=== PATIENT | female | born 1985 | race Asian ===

== ENCOUNTER 2019-04-08 17:20 | Outpatient (CLI) | payer OTHER, SELFPAY ==
[2019-04-12 05:10] LABS: Progesterone 11.5 ng/mL (***); Prolactin 17.5 ng/mL (***)
== END 2019-04-08 17:21 | disposition home or self-care (01) ==
LOC: ANHLAB 17:22
PROVIDERS: Visit Provider Obstetrics & Gynecology
DX: N97.0 Female infertility associated with anovulation (principal)
CPT/HCPCS: 36415; 84144; 84146; 84443

== ENCOUNTER 2020-04-30 16:13 | Inpatient (IN) | payer OTHER, SELFPAY ==
[2020-04-30] VITALS (13 sets, daily range): BP systolic 108–140; BP diastolic 64–99; PULSE 88–110; TEMP 36.4–37.3; BMI 29.7
--- NOTE | 2020-04-30 16:50 | LDADM ---
This patient, Gloria Garcia, was admitted to Labor/Delivery/Recovery 108 on 04/30/20 at 16:13. Plans for labor, pain management and were discussed with patient. Patient/family oriented to hospital policies and general routines including ID bracelet, bed and alarms, visiting hours, pain management, procedures, bathroom and other care routines, personal items, smoking policy, room service/diet and guest tray routines, security routines, and visiting hours. Patient/Family are encouraged to report perceived risks to care and to ask questions if they do not understand what they are told or what they should do. See OBIX for further documentation.
[2020-04-30 17:00] LABS: Basophils Absolute Auto 0.1 K/mm3 (0.0-0.1); Basophils Percent Auto 0.8 % (0.2-1.2); Eosinophils Absolute Auto 0.1 K/mm3 (0-0.3); Hematocrit 44.7 % (37.0-47.0); Hemoglobin 15.5 g/dL (12.0-15.0); Immature Granulocyte Absolute 0.09 K/mm3 (0.00-0.031); Lymphocytes Absolute Auto 1.33 K/mm3 (0.9-3.2); Lymphocytes Percent Auto 14.5 % (18.3-44.2); Mean Corpuscular HGB Conc 34.7 g/dl (32-36); Mean Corpuscular Hemoglobin 31.3 pg (26-34); Mean Corpuscular Volume 90.3 fl (80-100); Mean Platelet Volume 10.6 fl (7.4-10.4); Monocytes Absolute Auto 0.8 K/mm3 (0.1-0.6); Monocytes Percent Auto 9.2 % (2.6-8.5); Neutrophils Absolute Auto 6.7 K/mm3 (1.3-6.7); Neutrophils Percent Auto 73.5 % (45.5-73.1); Platelet Count Result 168 k/mm3 (150-375); Red Blood Count 4.95 M/mm3 (4.2-5.4); Red Cell Distribution Width 12.8 % (11.5-14.5); White Blood Count 9.2 K/mm3 (4.5-10.0)
[2020-04-30] MEDS: DINOPROSTONE 10 MG VAG INSERT VAGINAL (17:24)
[2020-05-01] VITALS (181 sets, daily range): BP systolic 66–165; BP diastolic 39–109; PULSE 31–281; RESP 16; TEMP 36.2–38.1; O2SAT 70–100
[2020-05-01] MEDS: LACTATED RINGERS 1,000 ML 125 ML IV CONT ×5 (05:21→21:06)
[2020-05-01] MEDS: OXYTOCIN 30 UNITS/NS 500 ML 30 UNITS/500 ML BAG 6 UNITS IV CONT (05:25)
--- NOTE | 2020-05-01 08:42 | WPDOBADMIT ---
Obstetrics - Admit Note Admission Note: record reviewed. Additions to the history and/or subsequent changes in the physical findings follow. 34 y/o G1 at 39 6/7 weeks here for induction of labor. Cervidil overnight. GBS neg. AVSS NST reactive TOCO: contractions every 2-3 min ABD soft, nontender, gravid, vertex EXT nontender Cervix 3/50/-2. AROM with clear fluid. A: IUP at term, desiring induction of labor. P: Oxytocin. Anticipate .
--- NOTE | 2020-05-01 09:47 | P.PNAN_ITS ---
Anes - Eval Pre Procedure Procedure: labor epidural Date/Time: 05/01/20 09:47 Surgeon: rut Preop Diagnosis: labor pain Pre Op Diagnosis: Induction of Labor Patient Data Age: 34 Gender: F Height: 5 ft 3 in Weight: 76 kg Last Vital Signs Temp 37.0 C 05/01/20 07:00 Pulse 92 05/01/20 09:30 BP 130/77 05/01/20 09:30 Allergies Allergy/AdvReac Type Severity Reaction Status Date / Time No Known Allergies Allergy Verified 02/27/20 11:41 Home Medications Medication Instructions Recorded Confirmed Type prenat.vits,jolly,[id number] 1 tablet PO DAILY 02/27/20 04/14/20 History Laboratory Tests 04/30/20 04/30/20 04/30/20 16:39 16:39 16:39 WBC 9.2 K/mm3 K/mm3 (4.5-10.0) RBC 4.95 M/mm3 M/mm3 (4.2-5.4) Hgb 15.5 g/dL H g/dL (12.0-15.0) Hct 44.7 % % (37.0-47.0) MCV 90.3 fl fl (80-100) MCH 31.3 pg pg (26-34) MCHC 34.7 g/dl g/dl (32-36) RDW 12.8 % % (11.5-14.5) Plt Count 168 k/mm3 k/mm3 (150-375) MPV 10.6 fl H fl (7.4-10.4) Immature Gran % (Auto) 1.0 % H % (0-0.5) Neut % (Auto) 73.5 % H % (45.5-73.1) Lymph % (Auto) 14.5 % L % (18.3-44.2) [place] % (Auto) 9.2 % H % (2.6-8.5) Eos % (Auto) 1.0 % % (0-4.4) Baso % (Auto) 0.8 % % (0.2-1.2) Lymph # (Auto) 1.33 K/mm3 K/mm3 (0.9-3.2) [place] # (Auto) 0.8 K/mm3 H K/mm3 (0.1-0.6) Eos # (Auto) 0.1 K/mm3 K/mm3 (0-0.3) Baso # (Auto) 0.1 K/mm3 K/mm3 (0.0-0.1) Abs Immat Gran (auto) 0.09 K/mm3 H K/mm3 (0.00-0.031) Absolute Neuts (auto) 6.7 K/mm3 K/mm3 (1.3-6.7) Absolute Nucleated RBC 0.0 K/mm3 K/mm3 (0.0-0.012) Nucleated RBC % 0.0 % % (0.0-0.2) RPR Pending Blood Type O Positive Antibody Screen Negative : gestational age (shona 05/01/20, ) Patient hx anesthesia problems: none Family hx anesthesia problems: none PMFSH Family History Family History Mother Tuberculosis Father Hypertension Social History Social History Smoking status: Never smoker Substance use: never Gender identity (if verbalized by the patient): Female Spiritual care concerns: No Exam Day of Procedure 05/01/20 09:47 Patient weight: normal Heart: regular rate and rhythm Lungs: normal air movement Airway: Mallampati scale class II Neurological: alert and oriented
[2020-05-01 10:19] LABS: Rapid Plasma Reagin Non-Reactive (NonReactive)
--- NOTE | 2020-05-01 13:07 | PM.OBPNLAB ---
Pain Control Date/time seen: 05/01/20 13:07 Comments: Comfortable with epidural. Pelvic Exam Dilation (cm): 6 Effacement (%): 80 station: 0 Comments: IUPC placed Contractions Contraction frequency: 3 Status Comments: NST reactive, with some variable decelerations Assessment and Plan Pitocin rate (mU/min): 8 Plan: continuous present management
[2020-05-01] MEDS: SODIUM CHLORIDE 0.9% IV 300 ML 600 ML I-UTERINE (13:16)
--- NOTE | 2020-05-01 19:15 | P.PCNOB_ITS ---
OB - Delivery Note Procedure Delivery date: 05/01/20 Procedure: Induction of labor with Induction method: per pitocin protocol and per cervidil protocol Delivery monitor: external FHT, external uterine and internal uterine Route of delivery: Laceration Description: Perineal - 3rd Degree Delivery repair: vicryl (3-0) Specimen: Yes (cord blood) Quantitative Blood Loss (ml): 1,082 Anesthesia type: Epidural Disposition: PACU Complications: None Narrative: 34 y/o G1 at 39 6/7 weeks gestation who presented to the hospital for induction of labor. Cervidil was placed overnight, was withdrawn the next morning. Oxytocin was administered intravenously. Amniotomy was performed with return of clear fluid. She received an epidural for pain control. Her labor progressed and her cervix dilated completely. She pushed with good effort and delivered the infant's head to the perineum, followed by the body. The nose and mouth were bulb suctioned. After a delay, the cord was clamped and cut. The infant was handed off the field. Cord blood was collected. The placenta delivered spontaneously and was grossly normal in appearance. The usual 3 vessel cord was noted. A third degree midline perineal laceration was sustained. This was reapproximated using 2 0 and 3 0 Vicryl in the usual layered fashion. Excellent hemostasis resulted as did excellent reapproximation of the normal anatomy. Needle and instrument counts were correct. The patient was taken to recovery room in stable condition. The went to the nursery in stable condition. I was present and scrubbed for the entire delivery. [place] Baby Date of : 05/01/20 Time of : 18:43 Weeks of gestation at delivery: 39 Infant gender: Female Weight (pounds): 7 Weight (ounces): 8 presentation: vertex position: Left Occiput Anterior Placenta delivery description: Spontaneous and Normal Configuration cord vessel description: 3 Vessels and Delayed Cord Clamping score one minute: 8 score five minutes: 9
[2020-05-01] MEDS: OXYTOCIN 30 UNITS/NS 500 ML 30 UNITS/500 ML BAG 125 UNITS IV CONT (19:21)
--- NOTE | 2020-05-01 20:05 | PC.NURSE ---
FOB came to nurses station to request for infant to be swaddled. Upon entering room Pt holding infant and had her face against the breast and also facing slightly downward. It was noted the baby was mottled and pale. I took the baby from the Mother and stimulated, called for assistance. taken to the warmer and continued stimulation. CPAP applied for about 10-15 seconds. Infant was breathing and HR above 100. Color started to change to pink. Meena Ramsey RN arrived at bedside. Infant was starting to cry with stimulation. Discussed with parents that the baby was unable to breathe due to being up against the breast and face down. Discussed proper positioning to keep the infants face up and if the baby falls asleep her head comes away from the breast and not into it. Mother stated she was just so tired and her arms were weak from pushing. Reassured pt and again discussed proper positioning.
[2020-05-01] MEDS: IBUPROFEN 600 MG TABLET PO (20:27)
[2020-05-01] MEDS: BENZOCAINE 20% AER SPR (*SP) 56 GM CAN 1 SPRAY TOPICAL (21:36)
[2020-05-01] MEDS: WITCH HAZEL 40 PADS 1 PAD TOPICAL (21:36)
--- NOTE | 2020-05-01 21:44 | OBPPTRN ---
Patient transferred to post room #281 via wheelchair. Support person present. Oriented to unit, room, information board, rooming in, admission packet and security measures. Patient verbalizes understanding. with patient.
[2020-05-02] MEDS: IBUPROFEN 600 MG TABLET PO ×3 (04:14→16:49)
[2020-05-02 04:15] VITALS: BP 109/58; PULSE 111; RESP 16; TEMP 36.4; O2SAT 100
[2020-05-02 05:22] LABS: Hematocrit 26.6 % (37.0-47.0); Hemoglobin 9.1 g/dL (12.0-15.0)
--- NOTE | 2020-05-02 07:32 | WPDANLDPN2 ---
Anes-Prog Note L&D Date/Time: 05/02/20 07:32 Comfortable throughout: labor and delivery Neuraxial method: epidural Epidural/Spinal procedure site: clean & non-tender Neuro status: Neuro function grossly intact. Cardiovascular status: normal Respiratory status: normal Airway patency: baseline Mental status: baseline Post-Op hydration status: normal Vital Signs: Last Vital Signs Temp 36.4 C L 05/02/20 04:15 Pulse 111 H 05/02/20 04:15 Resp 16 05/02/20 04:15 BP 109/58 L 05/02/20 04:15 Pulse Ox 100 05/02/20 04:15 Pain score (VAS): 03/04 I/O: Intake & Output 05/01/20 05/01/20 05/02/20 15:59 23:59 07:59 Intake Total 1999 3499 Output Total 28 Balance 1999 3472 Post-procedural complaints: none Patient feedback: Patient satisfied with anesthetic care.
--- NOTE | 2020-05-02 08:00 | PC.NURSE ---
PT introductions made and plan of care discussed per post , pain management, daily care activities and breast feeding. PT verbalized understanding of such care.
--- NOTE | 2020-05-02 08:05 | PC.NURSE ---
Mother called out for assist with feeding. Consulted with patient, reports has fed inconsistently and has required supplementation once during the night. Mother has nipple discomfort with latch. Nipple care reviewed and lanolin provided. Reviewed infant feeding cues, frequencies, duration of feedings, feeding elimination flow sheet, and signs of adequate intake. Demonstrated stimulation techniques to wake infant for feeding. Assisted with infant to breast. Reviewed positioning/alignment in cross cradle, holding breast in U hold and guided asymmetrical latch on. Infant was able to latch correctly within a few attempts. nursed eagerly, with steady draws and frequent swallowing noted. Reviewed signs of a correct latch, effective nursing and suck swallow ratio. Infant was able to maintain latch. Mother reported tenderness at times, infant had slipped to shallow latch. Demonstrated how to adjust latch more deeply while feeding. Mother quickly reports she can feel infant is latched more deeply and has minimal tenderness. Suggested to stimulate infant while feeding to keep awake and nursing effectively for increased stimulation and increased intake. Instructed mother to call out for RN assistance if she is unable to latch for feeding or she has discomfort with nursing. Instructed feeding should be initiated three hours from start of last feeding or if feeding cues are noted before. Mother voiced understanding of information shared.
[2020-05-02 08:40] VITALS: BP 149/79; PULSE 120; RESP 18; TEMP 37.2; O2SAT 99
[2020-05-02] MEDS: ACETAMINOPHEN 325 MG TABLET 650 MG PO ×2 (10:20→16:50)
[2020-05-02] MEDS: DOCUSATE SODIUM 100 MG CAPSULE PO ×2 (10:21→16:48)
[2020-05-02] MEDS: POLYSACCHARIDE IRON COMPLEX 150 MG CAPSULE PO ×2 (10:21→16:49)
[2020-05-02] MEDS: MULTIVIT/MIN/PREN/FOL AC/IRON TABLET 1 TAB PO (10:21)
[2020-05-02 10:30] VITALS: PULSE 120; RESP 18; O2SAT 99
--- NOTE | 2020-05-02 11:35 | PC.NURSE ---
Mother called out for assist with feeding. Demonstrated stimulation techniques to wake for feeding. Assisted with infant to breast. Reviewed positioning/alignment in cross cradle, holding breast in U hold and guided asymmetrical latch on. Infant was able to latch correctly within a few attempts. Infant nursed eagerly, with steady draws and frequent swallowing noted. Reviewed signs of a correct latch, effective nursing and suck swallow ratio. was able to maintain latch. Mother reported tenderness at times, infant had slipped to shallow latch. Demonstrated how to adjust latch more deeply while feeding. Mother quickly reports she can feel infant is latched more deeply and has minimal tenderness. Suggested to stimulate infant while feeding to keep infant awake and nursing effectively for increased stimulation and increased intake. Instructed mother to call out for RN assistance if she is unable to latch for feeding or she has discomfort with nursing. Instructed feeding should be initiated three hours from start of last feeding or if feeding cues are noted before. Mother voiced understanding of information shared.
[2020-05-02 12:45] VITALS: BP 147/71; PULSE 100; RESP 18; TEMP 37.3; O2SAT 99
--- NOTE | 2020-05-02 13:10 | PM.OBPNVD ---
OB - PN: Subj Subjective Date/time seen: 05/02/20 13:10 Narrative: Pain OK. OB - PN: Obj Data Labs CBC & Chem 7: 05/02/20 04:25 Labs: Laboratory Results - last 24 hr 05/02/20 04:25 Hgb 9.1 L D Hct 26.6 L OB - PN A/P Plan Comments: A: PPD#1, doing well. P: Routine care. Exam Psych: Other: AVSS ABD soft, nontender, fundus firm EXT nontender
--- NOTE | 2020-05-02 13:11 | PM.OBDSVD ---
DS: Admitting Diagnosis Admitting Diagnosis Admitting Diagnosis: IUP at 39 6/7 weeks DS: Discharge Diagnosis Discharge Diagnosis (1) (normal spontaneous vaginal delivery): Code(s): O80 - Encounter for full-term uncomplicated delivery Status: Acute OB - DS: Summary OB Procedures : None OB Procedures Intrapartum: Spontaneous Vag Delivery OB Procedures: : None DS: Data Data Completed and Pending Labs on day of discharge: Labs from last 24 hours 05/02/20 04:25 Hgb 9.1 L D Hct 26.6 L Discharge Plan Discharge Attending physician on discharge: Elijah Pereira Discharging Clinician: Elijah Pereira Patient Disposition: Home, Self-Care Activity: pelvic rest Diet: regular Discharge Instructions: Education: Mom and Baby Guide Given to: Mother Follow-Up: Call your delivering provider's office for an appointment to be seen in: 4 Weeks Mom and baby should come to the [facility] for the follow-up appointment. Appointment Date/Time: May 04, 2020 at 9:00 am What to expect at your follow-up visit: Blood Pressure Check Call [phone] if you are unable to keep your appointment time. BREAST CARE: * Wear a snug supportive bra. * For engorgement discomfort: Breast Feeding: * Apply warm moist washcloths * Express milk as needed to relieve engorgement * Wear loose clothing Bottle Feeding: * May apply ice packs * For sore nipples: * Identify correct latch-on * Apply warm moist washcloths before and after nursing * Air dry nipples after nursing * May apply Lansinoh cream to nipples PERINEAL CARE: * Until bleeding stops, use your tonya bottle after urinating * Change your pad frequently throughout the day * You may take sitz baths several times a day (fill your bathtub with warm water and soak for 20 minutes.) Do NOT bathe in the water * No tub baths until seen by your physician - You may shower ACTIVITY: * Rest as much as possible. * Do not exercise or lift anything heavier than your baby (such as laundry or other children.) * Avoid stairs or driving as much as possible. * Do not put anything into the vagina. No douching, tampons, or sexual activity until seen by physician. NOTIFY PHYSICIAN IF YOU HAVE ANY QUESTIONS OR IF ANY OF THE FOLLOWING SYMPTOMS OCCUR: * If your perineum becomes red, swollen, or more painful than what you have experienced in the hospital. * If your vaginal bleeding becomes foul smelling. * If your vaginal bleeding becomes more heavy than a period or if your bleeding changes from pink to bright red. However, you may pass an occasional walnut-sized clot once or twice for the first week . * If you experience a sharp, shooting pain in you calves. * If you discover a hard, reddened area on your breast or if you experience flu-like symptoms. * If you have a fever of 100.4 or greater DIET: * Eat regular, well-balanced meals. * Drink plenty of fluids daily. If , drink to thirst.Call or return if temperature above 100.4? F, increased abdominal pain, increased vaginal bleeding or any new problems. Stand Alone Forms: General Discharge Information Follow-up/Referrals: Elijah Pereira MD [Physician] - 6 Weeks Discharge Medications: New ibuprofen 600 mg tablet 600 mg PO Q6H PRN (Reason: cramps) Qty: 30 RF: 0 docusate sodium [Colace] 100 mg capsule 100 mg PO BID Qty: 60 RF: 0 ferrous sulfate 325 mg (65 mg iron) tablet 325 mg PO DAILY Qty: 30 RF: 0 No Action prenat.vits,jolly,[id number] Tablet 1 tablet PO DAILY RF: 0 Date of admission: 04/30/20 16:13 Primary Care Provider: Derrick Willoughby Admitting Provider: Elijah Pereira Attending physician on admission: Elijah Pereira Condition: Stable
[2020-05-02] MEDS: LANOLIN (LANSINOH) 7.5 GM CREAM 1 APPLIC TOPICAL (16:51)
[2020-05-02 17:00] VITALS: PULSE 110; RESP 18; O2SAT 99
[2020-05-02 21:15] VITALS: BP 117/59; PULSE 123; RESP 16; TEMP 36.8; O2SAT 99
--- NOTE | 2020-05-02 22:00 | PC.NURSE ---
Patient viewed the discharge video Mother & Baby Care, The First Two Weeks . Patient was given the opportunity and encouraged to ask questions. Patient verbalized understanding of information shared and has been given the mother/baby guide for home reference.
[2020-05-03] MEDS: ACETAMINOPHEN 325 MG TABLET 650 MG PO ×2 (00:45→08:58)
[2020-05-03] MEDS: IBUPROFEN 600 MG TABLET PO ×2 (00:45→09:02)
--- NOTE | 2020-05-03 07:00 | PC.NURSE ---
PT introductions made and plan of care discussed per post , pain management, breast feeding, daily care activities and pending discharge to home. PT verbalized understanding of such care.
[2020-05-03] MEDS: POLYSACCHARIDE IRON COMPLEX 150 MG CAPSULE PO (08:57)
[2020-05-03] MEDS: MULTIVIT/MIN/PREN/FOL AC/IRON TABLET 1 TAB PO (08:57)
[2020-05-03] MEDS: DOCUSATE SODIUM 100 MG CAPSULE PO (08:58)
--- NOTE | 2020-05-03 08:58 | PM.OBPNVD ---
OB - PN: Subj Subjective Date/time seen: 05/03/20 08:58 Narrative: Pain OK. Would like to go home. OB - PN: Obj Data Labs CBC & Chem 7: 05/02/20 04:25 OB - PN A/P Plan Comments: A: PPD#2, doing well. P: Home to f/u 6 weeks. Exam Psych: Other: AVSS ABD soft, nontender, fundus firm EXT nontender
[2020-05-03 09:00] VITALS: PULSE 136; RESP 20; O2SAT 100
[2020-05-03 09:45] VITALS: BP 156/67; PULSE 136; RESP 20; TEMP 36.9; O2SAT 100
--- NOTE | 2020-05-03 10:00 | PC.NURSE ---
Consult with pt., parents report infant fussy during the night with difficulties latching and refusing at times. Infant has been supplemented for some feedings. Assured parents may continue with fussiness until milk is in and need to supplement EBM/formula if does not breastfeed as required. Suggested mother pump if does not nurse. Also suggested to supplement 5-10 mls by bottle to calm before putting to breast if has refused to latch. Mother has a pump for home use and will familiarize with pump once home to initiate pumping. Mother struggles at times with latching, FOB is attentive and assisting when needed. Mother has demonstrated she is able to independently latch with appropriate positioning/alignment when infant is awake and making eager attempts. Mother is feeding as required and waking infant to feed if needed. Infant is currently meeting outcomes for weight, output, jaundice and feeding frequencies. Mother states she feels confident to continue current feeding plan of attempting to breast if infant does not latch she will supplement and pump once at home. Reviewed transition to breast milk, signs of adequate intake, and engorgement/relief. Instructed to call ICP if intake/output less than required. Reviewed regular medications mother is taking. Information provided per Brigitte. Reviewed community resources on the [facility] website and in the Mom/Baby guide. Information on outpatient services provided. Mother has no further questions at this time.
--- NOTE | 2020-05-03 12:30 | PC.NURSE ---
PT discharged to home ambulatory accompanied by spouse and to waiting car. Follow up appts confirmed
--- NOTE | 2020-05-03 12:30 | PC.NURSE ---
PT received discharge instructions per protocol and verbalized understanding of such care. Pt spoke Thai but was from the [facility] and her often explained things more thoroughly. no other barriers were noted. mom received instructions per one to one discussion. PT verbalized understanding of such care.
[2020-05-04 09:54] VITALS: BP 143/76; PULSE 122; RESP 18; TEMP 36.9; O2SAT 100
== END 2020-05-03 12:30 | disposition home or self-care (01) | DRG 768 ==
LOC: ANHLDR 16:20 → ANHOB2 05-01 21:55
PROVIDERS: Admitting Provider Obstetrics & Gynecology; PCP Internal Medicine; Visit Provider Obstetrics & Gynecology
DX: O70.20 Third degree perineal laceration during delivery, unspecified (principal); Z37.0 Single live birth; Z3A.40 40 weeks gestation of pregnancy; O36.8330 Maternal care for abnormalities of the fetal heart rate or rhythm, third trimester, not applicable or unspecified
CPT/HCPCS: 36415; 85014; 85018; 85025; 86592; 86850; 86900; 86901; A9270; J2590; J2795; J7030; J7120

== ENCOUNTER 2020-08-22 08:16 | Outpatient (CLI) | payer OTHER, SELFPAY ==
[2020-08-22 08:53] LABS: Alanine Aminotransferase 24 U/L (4-35); Albumin Level 5.1 g/dL (3.5-5.1); Alkaline Phosphatase 96 U/L (38-126); Anion Gap 11 mmol/L (8-16); Aspartate Amino Transferase 37 U/L (14-36); Bilirubin,Total 0.6 mg/dL (0.2-1.3); Blood Urea Nitrogen 12 mg/dL (7-17); Calcium 9.7 mg/dL (8.4-10.2); Carbon Dioxide 23 mmol/L (22-30); Chloride 106 mmol/L (98-107); Cholesterol 181 mg/dL (0-200); Estimated Glomerular Filt Rate > 60; Glucose 101 mg/dL (65-105); HDL Direct 43 mg/dL; Sodium 140 mmol/L (137-145); Triglycerides 165 mg/dL (<150)
[2020-08-22 09:04] LABS: LDL Cholesterol Direct 96 mg/dL
== END 2020-08-22 08:17 | disposition home or self-care (01) ==
LOC: ANHLAB 08:21
PROVIDERS: PCP Internal Medicine; Visit Provider Nurse Practitioner
DX: Z13.6 Encounter for screening for cardiovascular disorders (principal); Z13.220 Encounter for screening for lipoid disorders; Z13.29 Encounter for screening for other suspected endocrine disorder
CPT/HCPCS: 36415; 80053; 80061; 84443

== ENCOUNTER 2021-09-19 07:12 | Outpatient (CLI) | payer OTHER, SELFPAY ==
[2021-09-19 08:02] LABS: Alanine Aminotransferase 15 U/L (6-35); Albumin Level 4.8 g/dL (3.5-5.1); Alkaline Phosphatase 77 U/L (38-126); Anion Gap 11 mmol/L (8-16); Aspartate Amino Transferase 24 U/L (14-36); Bilirubin,Total 0.4 mg/dL (0.2-1.3); Blood Urea Nitrogen 14 mg/dL (7-17); Carbon Dioxide 28 mmol/L (22-30); Chloride 101 mmol/L (98-107); Cholesterol 149 mg/dL (0-200); Estimated Glomerular Filt Rate > 60; Glucose 101 mg/dL (65-110); HDL Direct 41 mg/dL; Potassium 4.2 mmol/L (3.4-5.0); Sodium 140 mmol/L (137-145); Triglycerides 115 mg/dL (<150)
[2021-09-19 08:11] LABS: LDL Cholesterol Direct 77 mg/dL
== END 2021-09-19 07:13 | disposition home or self-care (01) ==
LOC: ANHLAB 07:15
PROVIDERS: PCP Internal Medicine; Visit Provider Internal Medicine
DX: Z13.6 Encounter for screening for cardiovascular disorders (principal); Z13.220 Encounter for screening for lipoid disorders; Z13.21 Encounter for screening for nutritional disorder
CPT/HCPCS: 36415; 80053; 80061; 82306

== ENCOUNTER 2022-09-24 08:54 | Outpatient (CLI) | payer OTHER, SELFPAY ==
[2022-09-24 09:08] LABS: Hematocrit 44.4 % (35.0-49.0); Hemoglobin 15.1 g/dL (12.0-15.0); Mean Corpuscular Hemoglobin 31.3 pg (27.0-31.0); Mean Corpuscular Volume 91.9 fL (78.0-102.0); Mean Platelet Volume 9.5 fl (9.2-11.8); Platelet Count Result 182 K/mm3 (150-420); Red Blood Count 4.83 M/mm3 (4.20-5.40); Red Cell Distribution Width 11.4 % (11.6-14.4); White Blood Count 5.9 K/mm3 (4.8-10.8)
[2022-09-24 10:10] LABS: Alanine Aminotransferase 23 U/L (14-59); Albumin Level 4.2 g/dL (3.4-5.0); Alkaline Phosphatase 79 U/L (46-116); Anion Gap 7 mmol/L (8-16); Aspartate Amino Transferase 15 U/L (15-37); Bilirubin,Total 0.4 mg/dL (0.00-1.00); Blood Urea Nitrogen 18 mg/dL (7-18); Calcium 8.9 mg/dL (8.5-10.1); Carbon Dioxide 30 mmol/L (21-32); Chloride 104 mmol/L (98-108); Cholesterol 136 mg/dL (0-200); Estimated Glomerular Filt Rate > 60; Glucose 100 mg/dL (70-99); HDL Direct 43 mg/dL (40-60); LDL Cholesterol Calculated 76 mg/dL (<130); Osmolality Calculated 293 mOsm/kg (285-295); Potassium 4.4 mmol/L (3.5-5.1); Sodium 141 mmol/L (136-145); Total Protein 7.6 g/dL (6.4-8.2); Triglycerides 87 mg/dL (0-150)
== END 2022-09-24 08:55 | disposition home or self-care (01) ==
LOC: CHSLAB 08:56
PROVIDERS: PCP Nurse Practitioner; Visit Provider Nurse Practitioner
DX: Z00.00 Encounter for general adult medical examination without abnormal findings (principal)
CPT/HCPCS: 36415; 80053; 80061; 84443; 85027

== ENCOUNTER 2023-06-26 08:50 | Outpatient (CLI) | payer OTHER, SELFPAY ==
[2023-06-26 09:05] LABS: Basophils Absolute Auto 0.09 K/mm3 (0.00-0.10); Basophils Percent Auto 1.3 % (0.0-1.0); Eosinophils Absolute Auto 0.34 K/mm3 (0.02-0.50); Eosinophils Percent Auto 4.7 % (1.0-6.0); Hemoglobin 16.3 g/dL (12.0-15.0); Immature Granulocyte Absolute 0.02 K/mm3 (0.00-0.00); Immature Granulocyte Percent A 0.3 % (0.0-0.0); Lymphocytes Absolute Auto 1.59 K/mm3 (1.10-4.50); Lymphocytes Percent Auto 22.1 % (18.0-42.0); Mean Corpuscular Hemoglobin 30.6 pg (27.0-31.0); Mean Corpuscular Volume 90.1 fL (78.0-102.0); Mean Platelet Volume 8.6 fl (9.2-11.8); Monocytes Absolute Auto 0.46 K/mm3 (0.10-0.90); Monocytes Percent Auto 6.4 % (2.0-11.0); Neutrophils Absolute Auto 4.69 K/mm3 (1.70-7.20); Neutrophils Percent Auto 65.2 % (50.0-70.0); Platelet Count Result 233 K/mm3 (150-420); Red Blood Count 5.33 M/mm3 (4.20-5.40); Red Cell Distribution Width 11.5 % (11.6-14.4); White Blood Count 7.2 K/mm3 (4.8-10.8)
[2023-06-26 09:58] LABS: Alanine Aminotransferase 25 U/L (14-59); Albumin Level 4.3 g/dL (3.4-5.0); Alkaline Phosphatase 74 U/L (46-116); Anion Gap 12 mmol/L (4-12); Aspartate Amino Transferase 23 U/L (15-37); Bilirubin,Total 0.5 mg/dL (0.00-1.00); Blood Urea Nitrogen 16 mg/dL (7-18); Calcium 9.4 mg/dL (8.5-10.1); Carbon Dioxide 26 mmol/L (21-32); Chloride 99 mmol/L (98-108); Cholesterol 147 mg/dL (0-200); Estimated Glomerular Filt Rate > 60; Glucose 87 mg/dL (70-99); HDL Direct 43 mg/dL (40-60); LDL Cholesterol Calculated 78 mg/dL (<130); Osmolality Calculated 284 mOsm/kg (285-295); Potassium 4.2 mmol/L (3.5-5.1); Sodium 137 mmol/L (136-145); Thyroid Stimulating Hormone 3.65 uIU/mL (0.36-3.74); Total Protein 8.1 g/dL (6.4-8.2); Triglycerides 132 mg/dL (0-150)
== END 2023-06-26 08:51 | disposition home or self-care (01) ==
LOC: CHSLAB 08:52
PROVIDERS: PCP Nurse Practitioner Family; Visit Provider Nurse Practitioner Family
DX: Z00.00 Encounter for general adult medical examination without abnormal findings (principal)
CPT/HCPCS: 36415; 80053; 80061; 83036; 84443; 85025